=== PATIENT | female | born 1995 | race Caucasian/White ===

== ENCOUNTER 2021-12-02 23:18 | Emergency (ER) | payer MEDICAID ==
[2021-12-03] MEDS ORDERED: Ondansetron 4 MG/2 ML SDV IVPUSH ONE
[2021-12-03] MEDS ORDERED: Famotidine 20 MG Tab PO ONE
--- NOTE | 2021-12-03 00:04 | EDM.PDOC ---
ED HPI GENERAL MEDICAL PROBLEM - General Chief Complaint: Gastrointestinal Problem Stated Complaint: VOMITING BLOOD Time Seen by Provider: 12/03/21 00:01 Source of Information: Reports: Patient History Limitations: Reports: No Limitations - History of Present Illness INITIAL COMMENTS - FREE TEXT/NARRATIVE: pt was at [employer] and she developed [employer]usea and she vomited red looking material. She remembered later that the slushy that she drank was red. She as very mild nausea now and some irritated feeling in her stomach. She does not have alot of heart burn. Onset: Today, Sudden Duration: Hour(s): Location: Reports: Abdomen Associated Symptoms: Reports: Nausea/Vomiting - Related Data Allergies Allergy/AdvReac Type Severity Reaction Status Date / Time No Known Allergies Allergy Verified 12/02/21 23:32 Home Meds: Home Meds EPINEPHrine [Epipen] 0.3 mg IM ASDIRECTED PRN 12/02/21 [History] Loratadine [Claritin] 10 mg PO DAILY 12/02/21 [History] Past Medical History Respiratory History: Reports: Asthma Neurological History: Reports: Seizure Psychiatric History: Reports: ADHD, Anxiety, Depression Endocrine/Metabolic History: Reports: Hypothyroidism, Obesity/BMI 30+ Social & Family History - Tobacco Use Tobacco Use Status *Q: Never Tobacco User - Caffeine Use Caffeine Use: Reports: None - Recreational Drug Use Recreational Drug Use: No ED ROS GENERAL - Review of Systems Review Of Systems: See Below Constitutional: Reports: No Symptoms HEENT: Reports: No Symptoms Respiratory: Reports: No Symptoms Cardiovascular: Reports: No Symptoms Endocrine: Reports: No Symptoms GI/Abdominal: Reports: Nausea, Vomiting : Reports: No Symptoms Musculoskeletal: Reports: No Symptoms ED EXAM, GI/ABD - Physical Exam Exam: See Below Text/Narrative:: pt arrived after eating [employer] and having a slushy. She vomited and it looked quite red so she was concerned that she was bleeding. Exam Limited By: No Limitations General Appearance: Alert, Anxious, Mild Distress Ears: Normal External Exam Nose: Normal Inspection Throat/Mouth: Normal Inspection Head: Atraumatic Neck: Normal Inspection Respiratory/Chest: No Respiratory Distress Cardiovascular: Regular Rate, Rhythm GI/Abdominal Exam: Soft, Non-Tender (Female) Exam: Deferred Rectal (Female) Exam: Deferred Back Exam: Normal Inspection Extremities: Normal Inspection Neurological: Alert, Oriented, Normal Cognition Psychiatric: Anxious Course - Vital Signs Last Recorded V/S: Last Vital Signs Temp 36.5 C 12/02/21 23:40 Pulse 140 H 12/02/21 23:40 Resp 16 12/02/21 23:40 BP 146/79 H 12/02/21 23:40 Pulse Ox 100 12/02/21 23:40 - Orders/Labs/Meds Orders: Active Orders 24 hr Category Date Time Status Gastric Occult/pH Collection D [RC] ASDIRECTED Care 12/03/21 00:37 Active Labs: Laboratory Tests 12/03/21 12/03/21 Range/Units 00:57 01:01 WBC 12.1 H (4.5-11.0) K/uL RBC 5.57 H (3.30-5.50) M/uL Hgb 12.9 (12.0-15.0) g/dL Hct 41.6 (36.0-48.0) % MCV 75 L (80-98) fL MCH 23 L (27-31) pg MCHC 31 L (32-36) % Plt Count 412 H (150-400) K/uL Neut % (Auto) 76.8 H (36-66) % Lymph % (Auto) 13.2 L (24-44) % [place] % (Auto) 4.9 (2-6) % Eos % (Auto) 4.3 H (2-4) % Baso % (Auto) 0.5 (0-1) % Gastric Occult Blood Negative (NEGATIVE) Meds: Medications Discontinued Medications Generic Name Dose Route Start Last Admin Trade Name Freq PRN Reason Stop Dose Admin Famotidine 20 mg 12/03/21 00:00 12/03/21 00:15 Famotidine 20 Mg Tab PO 12/03/21 00:01 20 mg ONETIME ONE Administration Ondansetron HCl 4 mg 12/03/21 00:00 12/03/21 00:15 Ondansetron 4 Mg/2 Ml Sdv IVPUSH 12/03/21 00:01 Not Given ONETIME ONE Ondansetron HCl 4 mg 12/03/21 00:07 12/03/21 00:15 Ondansetron 4 Mg Tab.Dis PO 12/03/21 00:08 4 mg ONETIME ONE Administration - Re-Assessments/Exams Free Text/Narrative Re-Assessment/Exam: 12/03/21 01:16 pt had a normal hg and a neg gastrocult. She is feeling better. Departure - Departure Time of Disposition: 01:17 Disposition: Home, Self-Care 01 Condition: Fair Clinical Impression: Vomiting - Discharge Information Referrals: PCP,None [Primary Care Provider] - Forms: ED Department Discharge Care Plan Goals: ice chips and water tonight, zoforan 4mg subling as needed for nausea. Sepsis Event Note (ED) - Evaluation Sepsis Screening Result: No Definite Risk - Focused Exam Vital Signs: Vital Signs Temp Pulse Resp BP Pulse Ox 12/02/21 23:40 36.5 C 140 H 16 146/79 H 100 - My Orders Last 24 Hours: My Active Orders 12/03/21 00:37 Gastric Occult/pH Collection D [RC] ASDIRECTED - Assessment/Plan Last 24 Hours: My Active Orders 12/03/21 00:37 Gastric Occult/pH Collection D [RC] ASDIRECTED
[2021-12-03] MEDS ORDERED: Ondansetron 4 MG Tab.DIS PO ONE (00:07)
== END 2021-12-03 01:25 | disposition home or self-care (01) ==
LOC: JP.ED 23:18
DX: R11.2 Nausea with vomiting, unspecified (principal)
CPT/HCPCS: 36415; 85025; 99284; A9270